=== PATIENT | female | born 1985 | race Caucasian/White ===

== ENCOUNTER 2017-10-16 08:00 | Outpatient (CLI) | payer OTHER | END 2017-10-16 08:01 | disposition home or self-care (01) | LOC: LAB.R 08:00 | PROVIDERS: ATTEND Nurse Practitioner Obstetrics & Gynecology | DX: R82.99 Other abnormal findings in urine (principal) | CPT/HCPCS: 87086 ==

== ENCOUNTER 2017-11-13 09:24 | Outpatient (CLI) | payer OTHER | END 2017-11-13 09:25 | disposition home or self-care (01) | LOC: LAB.R 09:24 | PROVIDERS: ATTEND Nurse Practitioner Obstetrics & Gynecology | DX: Z36.85 Encounter for antenatal screening for Streptococcus B (principal) | CPT/HCPCS: 87081 ==

== ENCOUNTER 2017-12-17 10:04 | Outpatient (CLI) | payer OTHER ==
--- NOTE | 2017-12-17 12:01 | Ultrasound Report ---
BIOPHYSICAL PROFILE: 12/17/2017 CLINICAL INDICATION: Post-dates. TECHNIQUE: Real-time scanning was performed with rental sales representative static images obtained. FINDINGS: There is a single viable intrauterine gestation, in cephalic presentation. heart rate is 132 BPM. Amniotic fluid volume is normal, with an DAVIS of 13.5. The fetus receives 2 points for movements, 2 points for breathing, 2 points for tone, and 2 points for amniotic fluid volume, yielding a final score of 8/8. IMPRESSION: 04/16 BIOPHYSICAL PROFILE. TD: 12/17/2017 12:00
== END 2017-12-17 10:05 | disposition home or self-care (01) ==
LOC: DI 10:04
PROVIDERS: ATTEND Registered Nurse
DX: O48.0 Post-term pregnancy (principal); Z3A.41 41 weeks gestation of pregnancy
CPT/HCPCS: 76819

== ENCOUNTER 2017-12-18 06:08 | Inpatient (IN) | payer OTHER ==
[2017-12-18] MEDS ORDERED: OXYTOCIN/SODIUM CHLORIDE 0 ML IV ONE (06:38)
[2017-12-18] MEDS ORDERED: LACTATED RINGERS 1,000 ML IV ONE (06:38)
[2017-12-18] MEDS ORDERED: SODIUM CHLORIDE FLUSH 0.9% 10 ML SYRINGE ONE (06:39)
[2017-12-18] MEDS ORDERED: LIDOCAINE 1% 50 ML MDV ONE (06:54)
[2017-12-18] MEDS ORDERED: OXYTOCIN/SODIUM CHLORIDE 500 ML IV ONE (06:54)
[2017-12-18] MEDS ORDERED: SODIUM CHLORIDE FLUSH 0.9% 10 ML SYRINGE IVP PRN (06:59)
[2017-12-18] MEDS ORDERED: LACTATED RINGERS 1,000 ML IV SCH ×2 (07:00→08:00)
[2017-12-18 07:07] LABS: BASOPHILS % (AUTO) 0.2 %; EOSINOPHILS % (AUTO) 0.3 %; HGB - HEMOGLOBIN 12.5 g/dL (12.0-16.0); LYMPHOCYTES # (AUTO) 2.7 10^3/uL (1.5-3.5); LYMPHOCYTES % (AUTO) 16.8 %; MEAN CORPUSCULAR HGB CONC 32.7 g/dL (32.0-36.0); MEAN CORPUSCULAR VOLUME 94.7 fL (81.0-99.0); MEAN PLATELET VOLUME 9.3 fL (7.9-10.8); MONOCYTES # (AUTO) 0.7 10^3/uL (0.0-1.0); MONOCYTES % (AUTO) 4.7 %; NEUTROPHILS # (AUTO) 12.5 10^3/uL (1.5-6.6); PLT - PLATELET COUNT 309 10^3/uL (130-450); RED BLOOD COUNT 4.03 10^6/uL (4.20-5.40); RED CELL DISTRIBUTION WIDTH 14.7 % (12.0-15.0)
[2017-12-18] MEDS ORDERED: HYDROCORTISONE/PRAMOXINE 10 GM PR PRN (07:56)
[2017-12-18] MEDS ORDERED: OXYTOCIN/SODIUM CHLORIDE 250 ML IV ONE (07:56)
[2017-12-18] MEDS ORDERED: WITCH HAZEL/GLYCERIN 1 EACH MED..PAD TOP PRN (07:56)
--- NOTE | 2017-12-18 08:12 | HISTORY & PHYSICAL EXAMINATION ---
Admit History - Instructions [place]/Slash: -Left hand click circles element as positive or present. -Right hand click slashes element as negative or not present. - Visit Reason Visit Reason: Contractions - : 3 Parity: 2 Premature: 0 Ectopic: 0 : 0 Care: positive: [facility] Risk/History: positive: None Complications This : positive: None Smoking Status: Former smoker - Mother's Labs Mother's Blood Type: positive: O Mother's RH: positive: Negative GBS: positive: Group B Step Negative Rubella Status: positive: Immune - Other Maternal History Other Maternal History: HPI: This 32yo @ 41.2 by L=24wk U/S presents for contractions. Upon evaluation she was noted to be 8/100/-2, vertex. She was admitted to L&D for management. She reports intact membranes. Dating criteria: 1.) LMP 03/04/2017 2.) First ultrasound @ 24weeks agrees 3.) First exam at 30 weeks agrees 4.) Serial exams 30-41 weeks agrees OB History: G1: 07/15/2013, 41wks, vaginal, IOL, 3288g G2: 41 weeks, vaginal, [id number], epidural G3: current, limited care TELECOMMUNICATIONS CLERK History: Menarche age 13, regular cycle every 24-26 days STD's none; TELECOMMUNICATIONS CLERK surgeries: none No hx abnormal pap PMH: no significant Surgical Hx: none Family Hx: none Social Hx: Former smoker <10 years, quit 1-5 years ago Meds: PNV, TUMS Allergies: NKDA Physical Exam: Heart RRR w/o M/G/R Lungs CTAB Abdomen gravid, soft, nontender FHTs baseline 140s Cervix 8/100/-2, vertex, intact Labs: Blood type O neg, antibody neg Hgb 12.4, Hct 37.6, PLT 263 Rubella immune VZV immune HIV neg Hep B neg Hep C neg RPR non-reactive 28 week labs: Hgb 117 Tdap NHOH per patient Rhogam NHOH per patient GBS neg Ultrasounds: 08/2017 FAS WNL, posterior placenta, no previa Assessment: 31yo @ 41.2 wks gestation by L=24wk U/S Active labor Desires natural labor Rh neg, antibody neg Plan: Activity and nutrition as indicated Encouraged position changes Anticipate spontaneous vaginal delivery. Meds/Allgy - Allergies Allergies/Adverse Reactions: Allergies Allergy/AdvReac Type Severity Reaction Status Date / Time No Known Drug Allergies Allergy Verified 12/18/17 06:21 Physical - Abdominal Exam Vital Signs: Temp Pulse Resp BP Pulse Ox 37 C 78 18 122/79 100 12/18/17 06:20 12/18/17 07:42 12/18/17 07:42 12/18/17 07:42 12/18/17 07:35
--- NOTE | 2017-12-18 08:22 | DELIVERY NOTE ---
Delivery Note - Labor Labor: positive: Spontaneous - Delivery Method Delivery Method: positive: Spontaneous vaginal delivery - Presentation Presentation: positive: Vertex, RORY - left occiput anterior - Nuchal Cord Nuchal Cord: positive: Present, Reduced - Amniotic Fluid Description Amniotic Fluid Description: positive: Clear - Episiotomy Type Episiotomy Type: positive: None - Laceration Laceration: positive: 1st degree - Suture Suture Type: positive: Vicryl Suture Size: positive: 3-0 - Delivery Outcome Delivery Outcome: positive: Livebirth - [place]: positive: Placed in direct skin contact with mother, Bulb syringe, Stimulated, Warmed, Howes used sex: positive: Female - Cord Cord: positive: 3 vessels - Placenta Placenta: positive: Intact, Spontaneous - Estimated Blood Loss Estimated Blood Loss (in cc): 250 - Post Delivery Events Post Delivery Events: positive: No post delivery events - Delivery Comments (Free Text/Narrative) Delivery Comments (Free Text/Narrative): Labor: This 32yo @ 41.2wks gestation by L=24wk U/S presented at approximately 0600 in active labor. Cervix was 8/100/-2, vertex, intact membranes. FHR pattern demonstrated baseline 140s, category I tracing. Normal labor course. AROM occurred immediately after patient reached c/c/0 and was noted to be a moderate amount of clear fluid. FSE was placed on scalp due to inability to appreciate heart tones following gross rupture of membranes. FHR 70s, maternal O2 was applied and increased maternal pushing effort was encouraged. : Normal SVB of a viable female . Tight nuchal x 2 - delivered through using somersault maneuver. Loose body nuchal x 1. 's 6 and 8 at 1 and 5 min respectively on 12/18/2017 at 0718. The was placed on maternal abdomen, stimulated, dried, warmed with blanket, and bulb suctioned. The umbilical cord was doubly clamped and cut by FOB. 3VC. Cord blood and cord gases were obtained. Placenta delivered spontaneously and intact at 0723. Pitocin was administered via IV for hemostasis. EBL 250mL. Uterine fundus firm and there is no excessive bleeding. The perineum, vagina, and cervix were inspected and found to have 1st degree laceration. The laceration was infiltrated with 1% lidocaine and repaired using 3-[address]-1 needle in standard fashion under sterile conditions. Vaginal examination following repair was done. Tissues well approximated. initiated. Family bonding well. Both mother and baby were left in stable condition.
[2017-12-18] MEDS ORDERED: SODIUM CHLORIDE FLUSH 0.9% 10 ML SYRINGE IVP SCH (09:00)
[2017-12-18] MEDS: ACETAMINOPHEN 500 MG TABLET PO SCH ×2 (10:13→19:53)
[2017-12-18] MEDS: IBUPROFEN 800 MG TABLET PO SCH ×3 (10:13→22:05)
[2017-12-18] MEDS ORDERED: RHO(D) IMMUNE GLOBULIN 300 MCG SYRINGE IM SCH (16:32)
[2017-12-19] MEDS: IBUPROFEN 800 MG TABLET PO SCH ×2 (04:11→10:15)
[2017-12-19] MEDS: ACETAMINOPHEN 500 MG TABLET PO SCH ×2 (04:11→12:18)
[2017-12-19 07:54] VITALS: BP 125/82
--- NOTE | 2017-12-19 12:31 | Discharge Plan ---
Discharge Plan Disposition: 01 Home, Self Care Condition: Good Diet: Regular Activity Restrictions: pelvic rest x6 wks Shower Restrictions: No Driving Restrictions: No Weight Bearing: Full Weight Instruction Topics: Vaginal After, Breastfeed How To, Exercises Kegel Additional Instructions or Follow Up instructions: x1 week w/ CNM No Smoking: If you smoke, Please STOP! Call for help. Follow-up with: Steffany Carter CNM, HANNY [Provider Admit Priv/Credential] -
--- NOTE | 2017-12-19 12:34 | DISCHARGE SUMMARY ---
"Discharge Summary Admit Date: 12/18/17 Discharge Date: 12/19/17 Discharging Provider: jerman Code Status: Attempt Resuscitation Condition at Discharge: Good Discharge Disposition: 01 Home, Self Care Discharge Facility Name: [facility] - DIAGNOSES Admission Diagnoses: ACTIVE LABOR @ TERM Discharge Diagnoses with Status of Each Condition: - HPI History of Present Illness: ELI WAS ADMITTED IN SPONTANEOUS ACTIVE LABOR @ 41W2D W/ ADVANCED DILATATION. SHE PROGRESSED SPONTANEOUSLY TO COMPLETE DILATATION & DELIVERED A VIABLE FEMALE VAGINALLY W/O COMPLICATION - CONSULTS | PROCEDURES Procedures: - HOSPITAL COURSE Hospital Course: , ELI IS AMBULATING & VOIDING W/O DIFFICULTY. SHE IS PASSING FLATUS & TOLERATING A REGULAR DIET. SHE IS WELL W/ SLIGHT NIPPLE DISCOMFORT BUT NO OTHER COMPLAINTS. SHE HAS PREVIOUSLY SUCCESSFULLY BREASTFED X2. HER PAIN IS WELL-CONTROLLED W/O ANALGESIA & SHE REPORTS MINIMAL LOCHIA RUBRA. SHE DENIES HX OF PP DEPRESSION. SHE DOES NOT PLAN TO RETURN TO WORK. HER IS AVAILABLE TO ASSIST HER X10 DAYS & HER MIL WILL BE ARRIVING TO ASSIST HER THEREAFTER. SHE REPORTS ADDITIONAL EXCELLENT SOCIAL SUPPORT. SHE IS ABLE TO FULLY ARTICULATE PP WARNING S/SX, INCLUDING PP DEPRESSION S/SX, AND PP AFTERCARE INSTRUCTIONS. SHE IS READY TO LEAVE THE HOSPITAL. - ALLERGIES Allergies/Adverse Reactions: Allergies Allergy/AdvReac Type Severity Reaction Status Date / Time No Known Drug Allergies Allergy Verified 12/18/17 06:21 - PHYSICAL EXAM AT DISCHARGE General Appearance: positive: No acute distress, Alert Respiratory: positive: Chest non-tender, No respiratory distress, Breath sounds nml Cardiovascular: positive: Regular rate & rhythm, No murmur Abdomen: positive: Non-tender, No organomegaly, Nml bowel sounds, No distention , Other (FFU-1) Skin: positive: Color nml, No rash, Warm, Dry Extremities: positive: Non-tender, Full ROM, Nml appearance, No pedal edema. negative: Calf tenderness Neurologic/Psychiatric: positive: Oriented x3, CN's nml (2-12), Motor nml, Sensation nml, Mood/affect nml - LABS Result Diagrams: 12/18/17 06:40 - FOLLOW UP Follow Up: X1 WEEK W/ DREW SEXTON OR RUSSEL RODRÍGUEZ, ROBERT PRN PROBLEM - TIME SPENT Time Spent in Discharge (Minutes): 20"
--- NOTE | 2017-12-19 14:08 | Labor Flowsheet ---
Labor Flowsheet Datetime Report Generated by CPN: 12/19/2017 14:08 Datetime: 12/19/2017 07:46 VITAL SIGNS NBP Sys/Soni/Mean (mmHg): 125 : 82 : 92 Pulse: 59 Datetime: 12/18/2017 12:34 SpO2 (%): 99 Datetime: 12/18/2017 07:22 Membranes Rupture Method: Artificial Amniotic Fluid Color: Clear Amniotic Fluid Odor: Normal Datetime: 12/18/2017 07:11 VAGINAL EXAM Dilatation (cm): 9.5 Effacement (%): 100 Station: 1 Exam by: A. Emma Datetime: 12/18/2017 07:00 UTERINE ACTIVITY Monitor Mode: External Monitor Interventions for UA: [place] Adjusted Quality: Strong Pattern: Normal: <= 5 Contractions in 10 Minutes Resting Tone (Palpate): Relaxed ASSESSMENT A Monitor Mode: External US FHR Baseline Rate : 150 FHR Baseline Changes: No Baseline Change Variability: Moderate 6-25 bpm Accelerations: 15X15 Decelerations: None Category: Category I PATIENT CARE Oxygen Method: Room Air
== END 2017-12-19 13:30 | disposition home or self-care (01) | DRG 775 ==
LOC: WFO 06:08 → FBP 06:10 → WFO 06:22 → FBP 06:23
PROVIDERS: ADMIT Nurse Practitioner Obstetrics & Gynecology; ATTEND Registered Nurse
PROC: 10E0XZZ Delivery of Products of Conception, External Approach (ICD-10-PCS; principal; 2017-12-18)
PROC: 0HQ9XZZ Repair Perineum Skin, External Approach (ICD-10-PCS; 2017-12-18)
PROC: 10907ZC Drainage of Amniotic Fluid, Therapeutic from Products of Conception, Via Natural or Artificial Opening (ICD-10-PCS; 2017-12-18)
DX: O48.0 Post-term pregnancy (principal); O26.893 Other specified pregnancy related conditions, third trimester; O69.81X0 Labor and delivery complicated by cord around neck, without compression, not applicable or unspecified; O70.0 First degree perineal laceration during delivery; Z3A.41 41 weeks gestation of pregnancy; Z37.0 Single live birth; Z87.891 Personal history of nicotine dependence; Z67.41 Type O blood, Rh negative
CPT/HCPCS: 83033; 85025; 86900; 86901; 88307; 99212

== ENCOUNTER 2020-03-22 15:54 | Outpatient (CLI) | payer OTHER ==
--- NOTE | 2020-03-22 17:42 | MRI Report ---
PROCEDURE: Ankle LT W/O INDICATIONS: LEFT ANKLE SPRAIN TECHNIQUE: Noncontrast Magnetic Resonance Imaging (MRI) of the ankle/hindfoot was performed utilizing the follow ing sequences on a 3.0 [place]inda Siemens MRI: sagittal T1 spin echo, sagittal STIR, axial PD fast spin ec ho, axial T2 fast spin echo with fat saturation, coronal T2 spin echo with fat saturation, and PD fas t spin echo with fat saturation. COMPARISON: None. FINDINGS: Image quality: Diagnostic. Bones and joints: No acute fracture, dislocation, or suspicious osseous lesion of the midfoot or hindfoot bones is pres ent. Small amount of fluid within tibiotalar joint or subtalar joint is seen. The ankle mortise is we ll-maintained. No osteochondral defects are evident involving the tibial plafond toward the talar dom e. No significant degenerative changes of the midfoot or hindfoot joints are present. Medial structures: The deltoid ligament and the spring ligament are intact. The posterior tibialis, flexor digitorum longus, and flexor hallucis longus tendons are intact and wi thin normal limits. The posterior tibial neurovascular bundle appears normal within the tarsal tunnel , without extrinsic mass effect. Lateral structures: The anterior and posterior distal tibiofibular ligaments are also intact. The anterior talofibular li gament, posterior talofibular ligament, and calcaneofibular ligament are intact. The peroneus longus and peroneus brevis tendons are intact and otherwise unremarkable. The sinus tarsi demonstrates normal fatty signal. Anterior structures: The tibialis anterior, extensor hallucis longus, and extensor digitorum longus tendons appear intact. Posterior and plantar structures: Heterogeneous T2 hyperintense signal is seen throughout attenuated appearing Achilles tendon with flu id signal band within thickened 5.5 cm segment of mid to distal Achilles tendon approximately 2.5 cm from its insertion on the posterior calcaneus suggestive of moderate to high-grade intrasubstance par tial thickness tear. No full-thickness Achilles tendon rupture. The medial and lateral bands of the p lantar fascia are within normal limits. Mild soft tissue swelling around ankle joint is seen. IMPRESSION: 1. Ankle soft tissue swelling. No acute fracture or dislocation. 2. Moderate to high-grade partial-thickness tear involving 5.5 cm segment of mid to distal Achilles t endon as above. No definite full-thickness Achilles rupture. Rest of the ankle tendons are intact. 3. Medial and lateral ankle ligaments are intact. Reviewed by: Nathanael Taylor MD on 03/22/2020 5:41 PM PDT Approved by: Nathanael Taylor MD on 03/22/2020 5:41 PM PDT Station ID: [id number]
== END 2020-03-22 15:55 | disposition home or self-care (01) ==
LOC: DI 15:54
PROVIDERS: ATTEND Family Medicine
DX: S86.022A Laceration of left Achilles tendon, initial encounter (principal); M79.89 Other specified soft tissue disorders

== ENCOUNTER 2023-11-05 09:02 | Outpatient (CLI) | payer OTHER ==
[2023-11-05 09:18] LABS: BASOPHILS # (AUTO) 0.1 10^3/uL (0.0-0.1); BASOPHILS % (AUTO) 0.8 %; EOSINOPHILS # (AUTO) 0.1 10^3/uL (0.0-0.7); EOSINOPHILS % (AUTO) 1.1 %; HCT - HEMATOCRIT 38.3 % (37.0-47.0); HGB - HEMOGLOBIN 12.4 g/dL (12.0-16.0); LYMPHOCYTES # (AUTO) 2.5 10^3/uL (1.5-3.5); LYMPHOCYTES % (AUTO) 37.3 %; MEAN CORPUSCULAR HGB CONC 32.4 g/dL (32.0-36.0); MEAN CORPUSCULAR VOLUME 92.5 fL (81.0-99.0); MEAN PLATELET VOLUME 10.4 fL (7.9-10.8); MONOCYTES # (AUTO) 0.4 10^3/uL (0.0-1.0); MONOCYTES % (AUTO) 6.7 %; NEUTROPHILS # (AUTO) 3.5 10^3/uL (1.5-6.6); NEUTROPHILS % (AUTO) 53.6 %; PLT - PLATELET COUNT 329 10^3/uL (130-450); RED BLOOD COUNT 4.14 10^6/uL (4.20-5.40); RED CELL DISTRIBUTION WIDTH 15.1 % (12.0-15.0); WHITE BLOOD COUNT 6.6 x10^3/uL (4.8-10.8)
[2023-11-05 09:35] LABS: ALBUMIN 4.2 g/dL (3.2-5.5); ALBUMIN/GLOBULIN RATIO 1.6 (1.0-2.2); ALKALINE PHOSPHATASE 55 IU/L (42-121); ALT ALANINE AMINOTRANSFERASE 29 IU/L (10-60); AST ASPARTATE AMINOTRANSFERASE 16 IU/L (10-42); BILIRUBIN,TOTAL 0.5 mg/dL (0.2-1.0); BUN - BLOOD UREA NITROGEN 14 mg/dL (6-20); CALCIUM 9.2 mg/dL (8.5-10.3); CARBON DIOXIDE - CO2 27 mmol/L (21-32); CHLORIDE 105 mmol/L (101-111); CHOL/HDL RATIO 3.4 (<4.4); CHOLESTEROL 182 mg/dL; CREATININE 0.7 mg/dL (0.6-1.3); GFR - MDRD 94 (>89); GLUCOSE 88 mg/dL (74-104); HDL CHOLESTEROL 53 mg/dL; LDL CHOLESTEROL,CALCULATED 116 mg/dL; LDL/HDL RATIO 2.2 (<4.4); SODIUM 137 mmol/L (135-145); TOTAL PROTEIN 6.9 g/dL (6.4-8.9); TRIGLYCERIDES 67 mg/dL (48-352); VLDL CHOLESTEROL 13 mg/dL
[2023-11-05 09:50] LABS: THYROID STIMULATING HORMONE 5.03 uIU/mL (0.34-5.60)
== END 2023-11-05 09:03 | disposition home or self-care (01) ==
LOC: LAB 09:02
PROVIDERS: ATTEND Family Medicine
DX: R60.9 Edema, unspecified (principal); E66.8 Other obesity; Z79.899 Other long term (current) drug therapy
CPT/HCPCS: 36415; 80053; 80061; 83721; 84443; 85025